=== PATIENT | female | born 1985 | race African-American/Black ===

== ENCOUNTER 2016-10-19 23:26 | Emergency (ER) | payer OTHER ==
[~2016-10-19] VITALS: Ht 157.5 cm; Wt 120.9 kg
[~2016-10-19 23:26] MED LIST: BACL10TA PO; GABA-529 PO; IBUP-1546 PO; METF500T4 PO; SERT50TA12 PO; TRAM50TA4 PO
[2016-10-19 23:36] VITALS: BP 165/104
[2016-10-19 23:46] LABS: GLUCOSE,POINT OF CARE 100 MG/DL (70-110)
[2016-10-20] MEDS ORDERED: CEPHALEXIN MONOHYDRATE 500 MG CAPSULE PO ONE (01:00)
[2016-10-20] MEDS ORDERED: IBUPROFEN 800 MG TABLET PO ONE (01:00)
[2016-10-20] MEDS ORDERED: SULFAMETHOX/TRIMETH DS 800-160 MG/TABLET PO ONE (01:00)
== END 2016-10-20 01:11 | disposition home or self-care (01) ==
LOC: EMS 23:28
DX: L03.113 Cellulitis of right upper limb (principal); S50.861A Insect bite (nonvenomous) of right forearm, initial encounter; I10 Essential (primary) hypertension; E11.9 Type 2 diabetes mellitus without complications; F17.200 Nicotine dependence, unspecified, uncomplicated; W57.XXXA Bitten or stung by nonvenomous insect and other nonvenomous arthropods, initial encounter; Y93.89 Activity, other specified; Y92.89 Other specified places as the place of occurrence of the external cause; Y99.8 Other external cause status
CPT/HCPCS: 82962; 99284

== ENCOUNTER 2023-04-22 12:55 | Emergency (ER) | payer OTHER ==
[~2023-04-22] VITALS: Ht 160 cm; Wt 136.4 kg
[~2023-04-22 12:55] MED LIST changes: -BACL10TA PO; -GABA-529 PO; -IBUP-1546 PO; +METF-1211 PO; -METF500T4 PO; +SERT-158 PO; -SERT50TA12 PO; -TRAM50TA4 PO
[2023-04-22 13:10] VITALS: BP 165/97; PULSE 83; RESP 16; TEMP 98.7
[2023-04-22 13:26] LABS: GLUCOMETER DEV NAME(LOC) ERT.5; GLUCOSE,POINT OF CARE 147 MG/DL (70-110)
== END 2023-04-22 14:12 | disposition left against medical advice (07) ==
LOC: EMS 13:04
DX: M79.604 Pain in right leg (principal); Z53.21 Procedure and treatment not carried out due to patient leaving prior to being seen by health care provider
CPT/HCPCS: 82962; 99281